=== PATIENT | female | born 1990 | race Caucasian/White ===

== ENCOUNTER → 2017-10-14 | Outpatient (CLI) | payer OTHER ==
[2017-10-14 12:05] LABS: ALT 90 U/L (9-52); AST 60 U/L (14-36); Albumin 4.2 g/dL (3.5-5.0); Alkaline Phosphatase 85 U/L (38-126); Anion Gap 11 mmol/L; Blood Urea Nitrogen 10 mg/dL (7-17); Calcium 9.4 mg/dL (8.4-10.2); Carbon Dioxide 26 mmol/L (22-30); Chloride 102 mmol/L (98-107); Cholesterol 208 mg/dL (<200); Glucose 98 mg/dL (74-99); HDL Cholesterol 39 mg/dL (40-60); LDL Cholesterol,Calculated 118 mg/dL (0-99); Potassium 4.6 mmol/L (3.5-5.1); Sodium 139 mmol/L (137-145); Total Bilirubin 0.5 mg/dL (0.2-1.3); Total Protein 6.9 g/dL (6.3-8.2); Triglycerides 254 mg/dL (<150)
[2017-10-14 12:14] LABS: Basophils # (A) 0.1 k/uL (0-0.2); Basophils % (A) 1 %; Eosinophils # (A) 0.1 k/uL (0-0.7); Eosinophils % (A) 1 %; HCT 41.5 % (34.0-46.0); HGB 14.4 gm/dL (11.4-16.0); Lymphocytes % (A) 32 %; MCH 30.4 pg (25.0-35.0); MCHC 34.6 g/dL (31.0-37.0); MCV 87.8 fL (80.0-100.0); Mean Platelet Volume 7.3; Monocytes # (A) 0.4 k/uL (0-1.0); Monocytes % (A) 5 %; Neutrophils # (A) 5.5 k/uL (1.3-7.7); Neutrophils % (A) 60 %; Platelet Count 292 k/uL (150-450); RBC 4.73 m/uL (3.80-5.40); RDW 13.4 % (11.5-15.5); WBC 9.2 k/uL (3.8-10.6)
== END | disposition home or self-care (01) ==
LOC: LABWHC1 11:33
PROVIDERS: ATTEND Nurse Practitioner Primary Care
DX: Z00.00 Encounter for general adult medical examination without abnormal findings (principal)
CPT/HCPCS: 36415; 80053; 80061; 82306; 84443; 85025

== ENCOUNTER 2017-11-24 07:28 | Emergency (ER) | payer OTHER ==
[2017-11-24 07:36] VITALS: BP 129/87; PULSE 100; RESP 18; TEMP 98.4
[2017-11-24] MEDS ORDERED: ONDANSETRON ODT 4 MG TAB PO STA (07:44)
[2017-11-24] MEDS ORDERED: LIDOCAINE 1% INJ 10MG/ML (20 ML MDV) SQ STA (07:44)
[2017-11-24] MEDS ORDERED: MORPHINE SULFATE 4 MG/ML SYRINGE IM STA (07:44)
[2017-11-24] MEDS ORDERED: MORPHINE SULFATE/PF 10MG/10ML VL IM STA (07:44)
--- NOTE | 2017-11-24 07:46 | ED ---
General Adult HPI - General Chief complaint: Wound/Laceration Stated complaint: boil on back Time Seen by Provider: 11/24/17 07:37 Source: patient, RN notes reviewed Mode of arrival: ambulatory Limitations: no limitations - History of Present Illness Initial comments: 27-year-old female presenting to the emergency room today with chief complaint of an abscess to the back the right shoulder. She states that it started 4-5 days ago as a small spot. States it has gotten larger much bigger. States she has come to ahead she's been putting a topical ointment over top. Patient states she's never had anything similar in the past. She denies any other complaints or symptoms. Patient denies any recent fever, chills, shortness of breath, chest pain, back pain, abdominal pain, nausea or vomiting, numbness or tingling, headaches or visual changes, or any other complaints. - Related Data Previous Rx's Medication Instructions Recorded Ibuprofen [Motrin] 600 mg PO Q6HR PRN #20 day 11/24/17 Sulfamethox-Tmp 800-160Mg [Bactrim 1 tab PO Q12HR #20 tab 11/24/17 DS 800-160 mg] Allergies Allergy/AdvReac Type Severity Reaction Status Date / Time No Known Allergies Allergy Verified 11/24/17 07:36 Review of Systems ROS Statement: Those systems with pertinent positive or pertinent negative responses have been documented in the HPI. ROS Other: All systems not noted in ROS Statement are negative. Past Medical History Past Medical History: No Reported History History of Any Multi-Drug Resistant Organisms: None Reported Past Surgical History: Section Past Psychological History: No Psychological Hx Reported Smoking Status: Never smoker Past Alcohol Use History: None Reported Past Drug Use History: None Reported General Exam - General Exam Comments Initial Comments: General: The patient is awake and alert, in no distress, and does not appear acutely ill. Eye: extra-ocular movements are intact. No nystagmus. There is normal conjunctiva bilaterally. No signs of icterus. Ears, nose, mouth and throat: There are moist mucous membranes and no oral lesions. Neck: The neck is supple Musculoskeletal: Normal ROM, no tenderness. Strength 5/5. Sensation intact. Pulses equal bilaterally 2+. Neurological: A&O x 3. CN II-XII intact, There are no obvious motor or sensory deficits. Coordination appears grossly intact. Speech is normal. Skin: Skin is warm and dry. Abscess located to the right scapular area measuring approximately 4 cm across. Local redness and firmness on palpation. Psychiatric: Cooperative Limitations: no limitations Course Vital Signs 11/24/17 07:32 Temperature 98.4 F Pulse Rate 100 Respiratory 18 Rate Blood Pressure 129/87 O2 Sat by Pulse 99 Oximetry Procedures - Procedures Initial comment: Procedure: Incision and drainage The skin overlying the abscess was prepped with Betadine, and anesthetized with 1% lidocaine without epinephrine. A #11 scalpel was then used to incise the abscess. Some purulent material was then extracted from the lesion. Iodoform packing gauze was placed. Gauze dressing placed on top, The patient tolerated the procedure well. Medical Decision Making - Medical Decision Making Patient have large abscess to the right scapular area. This was drained and packing gauze was placed. Advised to follow-up with family doctor and advised may need to see surgeon for further drainage. Advised that if area increases or worsens to return here to the emergency room. Advised to begin antibiotics at this time. Disposition Clinical Impression: Abscess Disposition: HOME SELF-CARE Condition: Good Instructions: Abscess (ED) Additional Instructions: Please continue warm compresses least 4 times daily. Please use antibiotic as prescribed. Please return to the emergency room symptoms increase or worsen as discussed and follow-up family doctor or surgeon over the next 2 days. Prescriptions: Ibuprofen [Motrin] 600 mg PO Q6HR PRN #20 day PRN Reason: Pain Sulfamethox-Tmp 800-160Mg [Bactrim DS 800-160 mg] 1 tab PO Q12HR #20 tab Is patient prescribed a controlled substance at d/c from ED?: No Referrals: Surya Marin MD [Primary Care Provider] - 1-2 days Deniz Espinoza MD [Medical Doctor] - 1-2 days Time of Disposition: 08:25
[2017-11-24] MEDS ORDERED: SULFAMETH-TMP DS STARTER PACK 2 TAB BTL PO STA (08:21)
== END 2017-11-24 08:59 | disposition home or self-care (01) ==
LOC: EC 07:28
DX: L02.212 Cutaneous abscess of back [any part, except buttock and flank] (principal)
CPT/HCPCS: 99283; 10061; 96372; J2001; J2270

== ENCOUNTER 2018-12-27 17:26 | Emergency (ER) | payer OTHER ==
[2018-12-27 17:29] VITALS: BP 127/82; PULSE 80; RESP 18; TEMP 97.8
--- NOTE | 2018-12-27 17:51 | ED ---
Wound/Laceration HPI - General Chief Complaint: Wound/Laceration Stated Complaint: left middle finger laceration Time Seen by Provider: 12/27/18 17:38 Source: patient Mode of arrival: ambulatory Limitations: no limitations - History of Present Illness Initial Comments: Patient is a 28-year-old female presenting to emergency Department with complaints of a laceration to her left middle finger that happened prior to arrival. Patient states she is cutting an onion when it slipped and hit the dorsal aspect of her left middle finger just proximal to the nail. There is no nail involvement. Bleeding is controlled at this time. Patient denies being on a blood thinner. Patient does not recall her last tetanus vaccine. Patient has no other complaints at this time. Upon arrival vital signs are stable. - Related Data Previous Rx's Medication Instructions Recorded Ibuprofen [Motrin] 600 mg PO Q6HR PRN #20 day 11/24/17 Sulfamethox-Tmp 800-160Mg [Bactrim 1 tab PO Q12HR #20 tab 11/24/17 DS 800-160 mg] Allergies Allergy/AdvReac Type Severity Reaction Status Date / Time No Known Allergies Allergy Verified 12/27/18 17:29 Review of Systems ROS Statement: Those systems with pertinent positive or pertinent negative responses have been documented in the HPI. ROS Other: All systems not noted in ROS Statement are negative. Past Medical History Past Medical History: No Reported History History of Any Multi-Drug Resistant Organisms: None Reported Past Surgical History: Section Past Psychological History: No Psychological Hx Reported Smoking Status: Never smoker Past Alcohol Use History: None Reported Past Drug Use History: None Reported General Exam - General Exam Comments Initial Comments: GENERAL: Well-appearing, well-nourished and in no acute distress. HEAD: Atraumatic, normocephalic. EYES: Pupils equal round and reactive to light, extraocular movements intact, sclera anicteric, conjunctiva are normal. ENT: TMs normal, nares patent, oropharynx clear without exudates. Moist mucous membranes. NECK: Normal range of motion, supple without lymphadenopathy or JVD. LUNGS: Breath sounds clear to auscultation bilaterally and equal. No wheezes rales or rhonchi. HEART: Regular rate and rhythm without murmurs, rubs or gallops. ABDOMEN: Soft, nontender, normoactive bowel sounds. No guarding, no rebound. No masses appreciated. : Deferred EXTREMITIES: Normal range of motion, no pitting or edema. No clubbing or cyanosis. NEUROLOGICAL: Cranial nerves II through XII grossly intact. Normal speech, normal gait. PSYCH: Normal mood, normal affect. SKIN: Warm, Dry, normal turgor. Patient has a small , 1cm, superficial laceration to the dorsal aspect of the left middle finger just proximal to the nail. No nail involvement. Bleeding is controlled at this time. Limitations: no limitations Course Vital Signs 12/27/18 17:27 Temperature 97.8 F Pulse Rate 80 Respiratory 18 Rate Blood Pressure 127/82 O2 Sat by Pulse 99 Oximetry Medical Decision Making - Medical Decision Making Patient is a 28-year-old female presenting with a superficial 1 cm laceration to the left middle finger, dorsal aspect. No nail involvement. Patient's wound was cleaned and topical Exofin skin glue was applied. Edges approximated well. Tetanus vaccine was updated today. Return parameters were discussed with the patient she verbalized understanding. Patient is stable for discharge. Case discussed with Dr. Campbell. Disposition Clinical Impression: Laceration of left middle finger w/o foreign body w/o damage to nail Disposition: HOME SELF-CARE Condition: Stable Instructions (If sedation given, give patient instructions): Laceration (ED), Skin Adhesive Care (ED) Additional Instructions: Please return to the Emergency Department if symptoms worsen or any other concerns. Is patient prescribed a controlled substance at d/c from ED?: No Referrals: Kyle Connelly MD [Primary Care Provider] - 1-2 days
[2018-12-27] MEDS ORDERED: TOPICAL SKIN ADHESIVE 1 EACH AMP TOPICAL ONE (17:52)
[2018-12-27] MEDS ORDERED: DIPH,PERTUS(ACELL)TETVAC-LF 0.5 ML VIAL IM ONE (17:52)
== END 2018-12-27 18:18 | disposition home or self-care (01) ==
LOC: EC 17:26
DX: S61.213A Laceration without foreign body of left middle finger without damage to nail, initial encounter (principal); Z53.20 Procedure and treatment not carried out because of patient's decision for unspecified reasons; W22.8XXA Striking against or struck by other objects, initial encounter; W26.9XXA Contact with unspecified sharp object(s), initial encounter; Y93.89 Activity, other specified; Y92.009 Unspecified place in unspecified non-institutional (private) residence as the place of occurrence of the external cause
CPT/HCPCS: 12001; 99282